=== PATIENT | female | born 1995 | race African-American/Black ===

== ENCOUNTER 2019-05-27 09:55 | Emergency (ER) | payer MEDICAID ==
[~2019-05-27] VITALS: Ht 154.9 cm; Wt 45.0 kg
[2019-05-27 11:45] VITALS: BP 114/62
== END 2019-05-27 11:55 | disposition home or self-care (01) ==
LOC: ER 09:55
DX: B08.4 Enteroviral vesicular stomatitis with exanthem (principal)
CPT/HCPCS: 99282

== ENCOUNTER 2019-11-17 07:51 | Emergency (ER) | payer MEDICAID ==
[~2019-11-17] VITALS: Ht 157.5 cm; Wt 48.0 kg
[2019-11-17 08:34] LABS: CLARITY URINE CLEAR (CLEAR); COLOR URINE YELLOW (YELLOW); KETONES URINE NEGATIVE (NEGATIVE); LEUKOCYTE ESTERASE URINE 1+ (NEGATIVE); NITRITE URINE NEGATIVE (NEGATIVE); OCCULT BLOOD URINE 2+ (NEGATIVE); PROTEIN URINE NEGATIVE (NEGATIVE); UROBILINOGEN URINE 0.2 E.U./dL (0.2-1.0)
[2019-11-17 09:33] VITALS: BP 103/67
== END 2019-11-17 09:34 | disposition home or self-care (01) ==
LOC: ER 08:51
DX: N39.0 Urinary tract infection, site not specified (principal)
CPT/HCPCS: 81003; 81025; 99283

== ENCOUNTER 2020-05-09 18:11 | Inpatient (IN) | payer MEDICAID ==
[~2020-05-09] VITALS: Ht 157.5 cm; Wt 40.8 kg
[2020-05-09 19:03] LABS: BASOPHILS % 0.6 % (0.0-2.0); EOSINOPHILS % 0.4 % (0.0-5.0); LYMPHOCYTES % 27.3 % (20.0-50.0); MEAN CORPUSCULAR HEMOGLOBIN 32.1 pg (28.0-32.0); MEAN CORPUSCULAR VOLUME 93.5 fL (81.0-99.0); MEAN PLATELET VOLUME 8.2 fl (7.4-10.4); MONOCYTES % 5.4 % (2.0-8.0); NEUTROPHILS % 66.3 % (40.0-76.0); PLATELET 270 x1000/uL (130-400); RED BLOOD CELL COUNT 1.79 mill/uL (4.2-5.4); RED CELL DISTRIBUTION WIDTH 13.2 % (11.6-14.6)
[2020-05-09 19:07] LABS: HEMOGLOBIN. 5.7 g/dL (12.0-16.0)
[2020-05-09 19:08] LABS: CLARITY URINE TURBID (CLEAR); COLOR URINE RED (YELLOW); HEMATOCRIT. 16.7 % (36.0-48.0); KETONES URINE NEGATIVE (NEGATIVE); LEUKOCYTE ESTERASE URINE 2+ (NEGATIVE); NITRITE URINE POSITIVE (NEGATIVE); OCCULT BLOOD URINE 2+ (NEGATIVE); PROTEIN URINE 2+ (NEGATIVE); SPECIFIC GRAVITY URINE 1.022 (1.005-1.030); UROBILINOGEN URINE 0.2 E.U./dL (0.2-1.0)
[2020-05-09 19:11] LABS: CHLORIDE 108 mEq/L (98-107)
[2020-05-09 19:14] LABS: PARTIAL THROMBOPLASTIN TIME 26.9 sec (23.4-31.0); PROTHROMBIN TIME 10.9 sec (9.6-11.0)
[2020-05-09 19:16] LABS: ETHANOL BLOOD < 10 mg/dL
[2020-05-09 19:20] LABS: *AMPHETAMINES SCREEN URINE NEGATIVE (NEGATIVE); *BARBITURATES SCREEN URINE NEGATIVE (NEGATIVE); *BENZODIAZEPINES SCREEN URINE NEGATIVE (NEGATIVE); *COCAINE SCREEN URINE NEGATIVE (NEGATIVE); METHADONE URINE SCREEN NEGATIVE (NEGATIVE); OPIATES URINE SCREEN NEGATIVE (NEGATIVE)
[2020-05-09 19:21] LABS: PHENCYCLIDINE URINE SCREEN NEGATIVE (NEGATIVE)
[2020-05-09 19:24] LABS: CANNABINOID URINE SCREEN PRESUMTIVE POSITIVE (NEGATIVE)
[2020-05-09] MEDS ORDERED: DEXT 5%/LR + PITOCIN 20UNITS/L 1,000 ML IV ONE (20:15)
[2020-05-09 20:28] LABS: HCG SCREEN POSITIVE
[2020-05-09] MEDS ORDERED: MISOPROSTOL 200MCG TABLET PO ONE (20:45)
[2020-05-09] MEDS ORDERED: MORPHINE SULFATE 4 MG/ML CPJ (NOT FOR IM USE) IV ONE (21:30)
[2020-05-09] MEDS ORDERED: ONDANSETRON HCL 4MG/2ML INJ IV ONE (21:30)
[2020-05-09] MEDS ORDERED: ACETAMINOPHEN 500MG TABLET PO ONE (23:30)
[2020-05-10] VITALS (12 sets, daily range): BP systolic 95–123; BP diastolic 30–67
[2020-05-10 02:28] LABS: MEAN CORPUSCULAR HEMOGLOBIN 31.9 pg (28.0-32.0); MEAN CORPUSCULAR VOLUME 92.5 fL (81.0-99.0); PLATELET 197 x1000/uL (130-400); RED BLOOD CELL COUNT 1.32 mill/uL (4.2-5.4); RED CELL DISTRIBUTION WIDTH 13.5 % (11.6-14.6)
[2020-05-10 02:33] LABS: HEMATOCRIT 12.2 % (36.0-48.0); HEMOGLOBIN 4.2 g/dL (12.0-16.0)
[2020-05-10] MEDS ORDERED: DIPHENHYDRAMINE 50MG/ML VIAL IV PRN (02:45)
[2020-05-10] MEDS ORDERED: CEFTRIAXONE 1 G PREMIX 50 ML IV SCH (09:00)
[2020-05-10] MEDS ORDERED: MORPHINE SULFATE 2 MG/ML CPJ (NOT FOR IM USE) IV PRN (10:00)
[2020-05-10] MEDS ORDERED: HYDROCODONE/ACETAMINOPHEN 10/325MG TABLET PO PRN (10:00)
[2020-05-10] MEDS ORDERED: HYDR-4001 MT (11:38)
[2020-05-10] MEDS ORDERED: LEVO500T2 MT (11:38)
[2020-05-10] MEDS: MISOPROSTOL 200MCG TABLET PO SCH ×2 (12:26→16:26)
[2020-05-10 15:04] LABS: HEMOGLOBIN 8.3 g/dL (12.0-16.0)
[2020-05-10 15:20] LABS: PROTHROMBIN TIME 10.7 sec (9.6-11.0)
== END 2020-05-10 16:58 | disposition home or self-care (01) | DRG 564 ==
LOC: ER 18:11 → EDBEDREQ 19:45 → EDBEDREQSVC 22:09 → ENRESERV 22:40 → 8WST 05-10 01:10
PROVIDERS: ADMIT Internal Medicine; ATTEND Internal Medicine
PROC: 30233N1 Transfusion of Nonautologous Red Blood Cells into Peripheral Vein, Percutaneous Approach (ICD-10-PCS; principal; 2020-05-10)
DX: O03.4 Incomplete spontaneous abortion without complication (principal); A41.9 Sepsis, unspecified organism; E87.8 Other disorders of electrolyte and fluid balance, not elsewhere classified; O98.811 Other maternal infectious and parasitic diseases complicating pregnancy, first trimester; O23.41 Unspecified infection of urinary tract in pregnancy, first trimester; O99.321 Drug use complicating pregnancy, first trimester; E87.6 Hypokalemia; F12.10 Cannabis abuse, uncomplicated; O99.011 Anemia complicating pregnancy, first trimester; O25.11 Malnutrition in pregnancy, first trimester; O99.281 Endocrine, nutritional and metabolic diseases complicating pregnancy, first trimester
CPT/HCPCS: 36415; 76801; 80053; 80305; 80307; 80320; 80329; 81003; 84703; 85018; 85025; 85027; 85049; 85384; 86078; 86850; 86900; 86920; 93005; 96374; 99291; J0696; J2270; J2405; J2590; P9016; G0480

== ENCOUNTER 2022-06-21 19:59 | Emergency (ER) | payer MEDICAID ==
[~2022-06-21] VITALS: Ht 154.9 cm; Wt 43.0 kg
[~2022-06-21 19:59] MED LIST: HYDR-4001 MT; LEVO500T2 MT
[2022-06-21] MEDS ORDERED: ONDANSETRON 4MG ODT PO STA (23:38)
[2022-06-21] MEDS ORDERED: MAGNESIUM/ALUMINUM HYDROXIDE/SIMETHICONE 30ML UDC PO STA (23:38)
[2022-06-21] MEDS ORDERED: VISCOUS LIDOCAINE 2% 15 ML UDC PO STA (23:38)
[2022-06-22 00:22] LABS: CHLORIDE 100 mEq/L (98-107)
[2022-06-22 00:24] LABS: HCG SCREEN POSITIVE
[2022-06-22 00:27] LABS: BASOPHILS % 0.5 % (0.0-2.0); EOSINOPHILS % 0.3 % (0.0-5.0); HEMATOCRIT. 43.8 % (36.0-48.0); HEMOGLOBIN. 14.7 g/dL (12.0-16.0); LYMPHOCYTES % 16.3 % (20.0-50.0); MEAN CORPUSCULAR HEMOGLOBIN 30.8 pg (28.0-32.0); MEAN CORPUSCULAR VOLUME 91.6 fL (81.0-99.0); MEAN PLATELET VOLUME 7.8 fl (7.4-10.4); MONOCYTES % 6.9 % (2.0-8.0); PLATELET 249 x1000/uL (130-400); RED BLOOD CELL COUNT 4.78 mill/uL (4.2-5.4); RED CELL DISTRIBUTION WIDTH 13.8 % (11.6-14.6)
[2022-06-22] MEDS ORDERED: MAGNESIUM/ALUMINUM HYDROXIDE/SIMETHICONE 30ML UDC PO NR (01:30)
[2022-06-22] MEDS ORDERED: VISCOUS LIDOCAINE 2% 15 ML UDC PO NR (01:30)
[2022-06-22] MEDS ORDERED: ONDANSETRON 4MG ODT PO NR (01:30)
[2022-06-22] MEDS ORDERED: SODIUM CHLORIDE 0.9% 1,000 ML IV ONE (01:45)
[2022-06-22 01:47] LABS: CLARITY URINE CLOUDY (CLEAR); COLOR URINE DARK YELLOW (YELLOW); KETONES URINE 4+ (NEGATIVE); LEUKOCYTE ESTERASE URINE 1+ (NEGATIVE); NITRITE URINE NEGATIVE (NEGATIVE); OCCULT BLOOD URINE 1+ (NEGATIVE); PROTEIN URINE 2+ (NEGATIVE); SPECIFIC GRAVITY URINE 1.031 (1.005-1.030)
[2022-06-22] MEDS ORDERED: ONDA4TAB50 MT (04:41)
[2022-06-22 05:35] VITALS: BP 111/60
== END 2022-06-22 05:35 | disposition home or self-care (01) ==
LOC: ER 19:59
DX: O21.0 Mild hyperemesis gravidarum (principal); Z3A.01 Less than 8 weeks gestation of pregnancy
CPT/HCPCS: 36415; 71045; 76801; 76817; 80053; 81003; 81025; 83690; 84484; 84702; 84703; 85025; 96360; 96361; 99284; J7030; Q0162